=== PATIENT | male | born 1965 | race Caucasian/White ===

== ENCOUNTER 2020-07-24 18:23 | Observation (INO) | payer MEDICAID ==
[2020-07-24] MEDS: Lactated Ringers 1,000 ML IV SCH (18:36)
[2020-07-24] MEDS ORDERED: Ondansetron 4 MG/2 ML SDV IVPUSH PRN (19:14)
[2020-07-24] MEDS: Ketorolac 15 MG/ML SDV IVPUSH PRN (22:09)
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
[2020-07-25] MEDS: Lactated Ringers 1,000 ML IV SCH ×2 (02:46→15:57)
[2020-07-25] MEDS: Acetaminophen/HYDROcodone 325-5 MG Tab PO PRN ×2 (03:38→22:25)
[2020-07-25 05:58] LABS: BLOOD UREA NITROGEN,BUN 16 mg/dL (7.0-18.0); CARBON DIOXIDE,CO2 26.5 mmol/L (21.0-32.0); CHLORIDE,CL 107 mmol/L (98-107); GLUCOSE RANDOM 128 mg/dL (74-106); POTASSIUM,K 3.4 mmol/L (3.5-5.1); SODIUM,NA 141 mmol/L (136-148)
[2020-07-25] MEDS: Ketorolac 15 MG/ML SDV IVPUSH PRN ×2 (08:43→19:24)
--- NOTE | 2020-07-25 11:13 | CR ---
Chest: 2 views of the chest were obtained. Comparison: No previous chest x-ray. Minimal density within the left lung base either due to atelectasis or scarring. Lungs otherwise are clear. Heart size and mediastinum are normal. 2 healed right mid to lower rib fractures are seen. Impression: 1. Findings as noted above. 2. Nothing acute is appreciated. Diagnostic code #2 This report was dictated in MDT
--- NOTE | 2020-07-25 11:29 | PCM.PREANE ---
Preanesthetic Assessment - Anesthesia/Transfusion/Family Hx Anesthesia History: Prior Anesthesia Without Reaction Family History of Anesthesia Reaction: No Transfusion History: Prior Transfusion Without Reaction - Review of Systems General: No Symptoms Pulmonary: No Symptoms Cardiovascular: No Symptoms Neurological: No Symptoms Other: Reports: None - Physical Assessment NPO Status Date: 07/24/20 Vital Signs: Last Vital Signs Temp 98.4 F 07/25/20 11:13 Pulse 56 L 07/25/20 11:13 Resp 15 07/25/20 11:13 BP 116/63 07/25/20 11:13 Pulse Ox 95 07/25/20 11:13 Height: 5 ft 10.08 in Weight: 80.286 kg ASA Class: 1 Mental Status: Alert & Oriented x3 Airway Class: Mallampati = 2 Dentition: Reports: Normal Dentition ROM/Head Extension: Full Lungs: Clear to Auscultation, Normal Respiratory Effort Cardiovascular: Regular Rate, Regular Rhythm - Lab Values: Laboratory Last Values WBC 10.18 K/uL (4.0-11.0) 07/25/20 05:18 RBC 3.91 M/uL (4.50-5.90) L 07/25/20 05:18 Hgb 12.0 g/dL (13.0-17.0) L 07/25/20 05:18 Hct 34.6 % (38.0-50.0) L 07/25/20 05:18 MCV 88.5 fL (80.0-98.0) 07/25/20 05:18 MCH 30.7 pg (27.0-32.0) 07/25/20 05:18 MCHC 34.7 g/dL (31.0-37.0) 07/25/20 05:18 RDW Std Deviation 37.6 fl (28.0-62.0) 07/25/20 05:18 RDW Coeff of Emily 12 % (11.0-15.0) 07/25/20 05:18 Plt Count 215 K/uL (150-400) 07/25/20 05:18 MPV 9.60 fL (7.40-12.00) 07/25/20 05:18 Neut % (Auto) 78.0 % (48.0-80.0) 07/25/20 05:18 Lymph % (Auto) 8.3 % (16.0-40.0) L 07/25/20 05:18 Gregg % (Auto) 9.7 % (0.0-15.0) 07/25/20 05:18 Eos % (Auto) 3.7 % (0.0-7.0) 07/25/20 05:18 Baso % (Auto) 0.3 % (0.0-1.5) 07/25/20 05:18 Neut # (Auto) 7.9 K/uL (1.4-5.7) H 07/25/20 05:18 Lymph # (Auto) 0.9 K/uL (0.6-2.4) 07/25/20 05:18 Gregg # (Auto) 1.0 K/uL (0.0-0.8) H 07/25/20 05:18 Eos # (Auto) 0.4 K/uL (0.0-0.7) 07/25/20 05:18 Baso # (Auto) 0.0 K/uL (0.0-0.1) 07/25/20 05:18 Nucleated RBC % 0.0 /100WBC 07/25/20 05:18 Nucleated RBCs # 0 K/uL 07/25/20 05:18 Sodium 141 mmol/L (136-148) 07/25/20 05:18 Potassium 3.4 mmol/L (3.5-5.1) L 07/25/20 05:18 Chloride 107 mmol/L (98-107) 07/25/20 05:18 Carbon Dioxide 26.5 mmol/L (21.0-32.0) 07/25/20 05:18 BUN 16 mg/dL (7.0-18.0) 07/25/20 05:18 Creatinine 1.0 mg/dL (0.8-1.3) 07/25/20 05:18 Est Cr Clr Drug Dosing 87.19 mL/min 07/25/20 05:18 Estimated GFR (MDRD) > 60.0 ml/min 07/25/20 05:18 Glucose 128 mg/dL (74-106) H 07/25/20 05:18 POC Glucose 107 mg/dL (60-110) 07/25/20 07:50 Calcium 8.1 mg/dL (8.5-10.1) L 07/25/20 05:18 Total Bilirubin 0.6 mg/dL (0.2-1.0) 07/25/20 05:18 AST 11 IU/L (15-37) L 07/25/20 05:18 ALT 16 IU/L (14-63) 07/25/20 05:18 Alkaline Phosphatase 52 U/L (46-116) 07/25/20 05:18 Total Protein 5.7 g/dL (6.4-8.2) L 07/25/20 05:18 Albumin 2.8 g/dL (3.4-5.0) L 07/25/20 05:18 Globulin 2.9 g/dL (2.6-4.0) 07/25/20 05:18 Albumin/Globulin Ratio 1.0 (0.9-1.6) 07/25/20 05:18 SARS Virus RNA (PCR) NEGATIVE (NEGATIVE) 07/24/20 18:45 - Allergies Allergies/Adverse Reactions: Allergies Allergy/AdvReac Type Severity Reaction Status Date / Time No Known Allergies Allergy Verified 07/24/20 18:30 - Blood Blood Available: No - Anesthesia Plan Pre-Op Medication Ordered: None - Acknowledgements Anesthesia Type Planned: General Anesthesia Pt an Appropriate Candidate for the Planned Anesthesia: Yes Alternatives and Risks of Anesthesia Discussed w Pt/Guardian: Yes Pt/Guardian Understands and Agrees with Anesthesia Plan: Yes PreAnesthesia Questionnaire Endocrine/Metabolic History: Reports: Diabetes, Type II, Other (See Below) Other Endocrine/Metabolic History: "controlled with diet" - SUBSTANCE USE Smoking Status *Q: Former Smoker Recreational Drug Use History: No - HOME MEDS Home Medications: Home Meds . [No Known Home Meds] 07/24/20 [History] - CURRENT (IN HOUSE) MEDS Current Meds: Current Medications Hydrocodone Bitart/Acetaminophen ([place] 325-5 Mg) 1 tab PO Q4H PRN PRN Reason: Pain (moderate 4-6) Last Admin: 07/25/20 03:38 Dose: 1 tab Documented by: Lactated Ringer's (Ringers, Lactated) 1,000 mls @ 125 mls/hr IV ASDIRECTED JANAK Last Admin: 07/25/20 02:46 Dose: 125 mls/hr Documented by: Ketorolac Tromethamine (Toradol) 15 mg IVPUSH Q8H PRN PRN Reason: Pain Stop: 07/29/20 19:21 Last Admin: 07/25/20 08:43 Dose: 15 mg Documented by: Ondansetron HCl (Zofran) 4 mg IVPUSH Q4H PRN PRN Reason: Nausea
[2020-07-25] MEDS ORDERED: Rocuronium Bromide 50 MG/5 ML Syringe ONE (11:55)
[2020-07-25] MEDS ORDERED: Midazolam 1 MG/ML 2 ML SDV ONE (11:55)
[2020-07-25] MEDS ORDERED: Ketorolac 30 MG/ML SDV ONE ×2 (11:55→15:14)
[2020-07-25] MEDS ORDERED: Lidocaine 2% 100 MG/5 ML Syringe ONE (11:55)
[2020-07-25] MEDS ORDERED: Dexamethasone 4 MG/ML 5 ML MDV ONE (11:55)
[2020-07-25] MEDS ORDERED: fentaNYL 250 MCG/5 ML SDV ONE ×2 (11:55→13:21)
[2020-07-25] MEDS ORDERED: Propofol 200 MG/20 ML SDV ONE (11:55)
[2020-07-25] MEDS ORDERED: Ondansetron 4 MG/2 ML SDV ONE ×2 (11:55→14:14)
[2020-07-25] MEDS ORDERED: Bupivacaine 0.25% 10 ML SDV ONE (11:58)
[2020-07-25] MEDS ORDERED: Octyl 2-Cyanoacrylate 1 Tube ONE (11:59)
[2020-07-25] MEDS ORDERED: Bupivacaine 25%/EPINEPHrine/PF 30 ML ONE (12:05)
[2020-07-25] MEDS ORDERED: cefOXitin 1 GM Vial ONE (12:27)
[2020-07-25] MEDS ORDERED: Sodium Chloride 0.9% 20 ML ONE (12:27)
[2020-07-25] MEDS ORDERED: ePHEDrine 50 MG/ML SDV ONE (14:05)
--- NOTE | 2020-07-25 14:27 | PN ---
SUBJECTIVE: The patient was seen this morning. The patient says he is feeling much better, with less abdominal pain, though he still has some in mid epigastric and right upper quadrant. The patient says he is passing some gas and his urination has returned to normal. The patient says he still occasionally gets a little chest pain which he describes as a zing of pain that kind of goes up his chest wall. He says this does not happen very often, just kind of radiates up and then goes right away. OBJECTIVE: GENERAL: The patient is lying comfortably in his hospital bed. He is alert and oriented in no acute distress. VITAL SIGNS: Temperature is 98.0, heart rate is 62, blood pressure is 104/60. LABORATORY DATA: His white cell count has normalized at 10.1, hemoglobin is 12, platelet count is 215. Total bilirubin is 0.6, AST 11, ALT 16, alkaline phosphatase is 52. ASSESSMENT AND PLAN: The patient is a 55-year-old gentleman who was transferred yesterday for acute cholecystitis. CT scan shows thickened gall bladder wall, gall stones, and pericholecystic fluid. He does have an upper quadrant pain and discomfort. The patient said he had no questions about the surgery today. I did go the risks, goals, and alternatives. The risks include bleeding, bile leak, injury to near by structures, hernia formation, need to convert to open, retained gallstones, and that this could be something other than his gallbladder. Plan is to take the patient back when OR is open later this afternoon. All of the patient's questions were answered. I went over that I am unsure of what the quick left chest that radiates of his chest wall. I will get a pre-operative chest x-ray. JAVIER DUMONT /[id number] DIANE
[2020-07-25] MEDS ORDERED: Ketorolac 15 MG/ML SDV IVPUSH ONE (15:12)
--- NOTE | 2020-07-25 15:22 | PCM.OPNOTE ---
- General Post-Op/Procedure Note Date of Surgery/Procedure: 07/25/20 Operative Procedure(s): Laparoscopic cholecystectomy Findings: Distended, edematous gallbladder. Diction #[id number] Pre Op Diagnosis: acute cholecystitis Post-Op Diagnosis: Acute cholecystitis Anesthesia Technique: General ET Tube Primary Surgeon: Blaine Strickland Pathology: gallbladder EBL in mLs: 15 Complications: None Condition: Good Free Text/Narrative:: Intake & Output 07/25/20 07/25/20 07/25/20 06:59 14:59 22:59 Intake Total 1366 Output Total 650 Balance 716
--- NOTE | 2020-07-25 15:42 | PCM.POSTAN ---
POST ANESTHESIA ASSESSMENT - MENTAL STATUS Mental Status: Alert, Oriented - VITAL SIGNS Vital Signs: Last Vital Signs Temp 37.2 C 07/25/20 14:47 Pulse 76 07/25/20 15:28 Resp 17 07/25/20 15:28 BP 134/83 07/25/20 15:28 Pulse Ox 95 07/25/20 15:28 - RESPIRATORY Respiratory Status: Respiratory Rate WNL, Airway Patent, O2 Saturation Stable - CARDIOVASCULAR CV Status: Pulse Rate WNL, Blood Pressure Stable - GASTROINTESTINAL GI Status: No Symptoms - PAIN Pain Score: 5 (States he is comfortable. ) - POST OP HYDRATION Hydration Status: Adequate & Stable
--- NOTE | 2020-07-25 15:43 | PCM48HPAN ---
Post Anesthesia Note - EVALUATION WITHIN 48HRS OF ANESTHETIC Vital Signs in Normal Range: Yes Patient Participated in Evaluation: Yes Respiratory Function Stable: Yes Airway Patent: Yes Cardiovascular Function Stable: Yes Hydration Status Stable: Yes Pain Control Satisfactory: Yes Nausea and Vomiting Control Satisfactory: Yes Mental Status Recovered: Yes Vital Signs: Last Vital Signs Temp 37.2 C 07/25/20 14:47 Pulse 76 07/25/20 15:28 Resp 17 07/25/20 15:28 BP 134/83 07/25/20 15:28 Pulse Ox 95 07/25/20 15:28
--- NOTE | 2020-07-25 18:49 | OR ---
SURGEON: HOMERO HER MD DATE OF PROCEDURE: 07/25/2020 PREOPERATIVE DIAGNOSIS: Acute cholecystitis. POSTOPERATIVE DIAGNOSIS: Acute cholecystitis. PROCEDURE PERFORMED: Laparoscopic cholecystectomy. FINDINGS: Distended, edematous gallbladder. ANESTHESIA: General. PRIMARY SURGEON: Homero Her MD BLOOD LOSS: 15 mL. PATHOLOGY: Gallbladder. COMPLICATIONS: None. REASON FOR PROCEDURE: The patient is a pleasant 55-year-old gentleman who last Ag started having some epigastric and right upper quadrant pain. This became more diffuse and worsened throughout the week. He went to [place] where he was admitted to the hospital and started on antibiotics. A CT scan did show a gallbladder with thickened gallbladder wall and pericholecystic fluid, and he was transferred to [place] for cholecystectomy. I did go over with the patient the risks, goals, and alternatives to laparoscopic cholecystectomy. Risks include, but are not limited to, bleeding, hernia formation, injury to nearby structures such as common bile duct or duodenum, retained stones, needing to convert to open, bile leak, and this may something other than acute cholecystitis. The patient understands, and he wishes to proceed. OPERATION NARRATIVE: The patient was brought back to the OR and prepped and draped in usual sterile fashion. SCDs were placed. Preoperative antibiotics were given. Anesthesia was provided by the Anesthesia team. After time-out was performed, an infraumbilical incision was made down to his fascia. Two stay sutures were placed with 0 Vicryl sutures and the abdomen was opened in an open technique using David trocar. Now, a David trocar was placed, insufflation was began, and the abdomen was inspected. There did not appear to be any entry injury. The omentum was up and wrapped around the gallbladder. Now, three more 5 mm trocars were placed under direct visualization; one in the midepigastric, one in the right upper quadrant, and one in the lower right quadrant. Now, the omentum was carefully peeled off the inflamed and edematous gallbladder. The gallbladder was very distended and unable to grasp. Because of this, it was drained with a needle, thick green bile came out. Now, the fundus of the gallbladder was grasped and elevated. The rest of the omentum was carefully peeled off the gallbladder. Now, the infundibulum of the gallbladder was grasped and the critical view was carefully dissected out. There was some fat in this area that was very edematous, but with careful dissection. I did get a great critical view with the cystic duct, cystic artery, and liver. After this occurred, the cystic duct and cystic artery were clipped and transected. The gallbladder was then slowly lifted off the fossa with a Harmonic scalpel. The gallbladder was very edematous and kind of just peeled off the fossa. The gallbladder was then placed in the Endo Catch bag and removed through the umbilical incision. Because the gallbladder was so edematous, I had to expand both my skin and fascial incision to get the gallbladder out, quite a bit. Once the gallbladder was removed, the David trocar was replaced. Now, the fossa bed was inspected. It was suctioned and irrigated out. There was fairly good hemostasis, just some very minimal oozing, this was controlled with electrocautery. Again inspected, there was good hemostasis and clips appeared to be still in a good position. Now, the area was suctioned and irrigated out. Also looked down in the pelvis and got a little bit of fluid down there. Rest of the abdomen was inspected, did not see any other abnormalities. Now, the 5 mm trocars were removed under direct visualization and the pneumoperitoneum was released. David trocar was removed. Now, the fascia was closed with two [id number] 0 Vicryls. Two stay sutures were also used to close the fascia. All the trocar sites were again injected with local and closed with 4-0 Monocryl and Dermabond. At the end of the case, the patient was transferred to the recovery room and sponge and needle counts were correct. JAVIER DUMONT /[id number] DIANE
[2020-07-26] MEDS: Acetaminophen/HYDROcodone 325-5 MG Tab PO PRN (07:40)
--- NOTE | 2020-07-26 13:56 | DISCH ---
DATE OF DISCHARGE: 07/26/2020 PRIMARY CARE PHYSICIAN: None PCP PRIMARY DISCHARGE DIAGNOSIS: Acute cholecystitis. PROCEDURE PERFORMED: Laparoscopic cholecystectomy on 07/[address] Blaine Strickland. DISCHARGE MEDICATIONS: [place] 5/325 one tablet q.6 hours p.r.n. pain for acute pain after gallbladder removal. REASON FOR ADMISSION: The patient is a pleasant 55-year-old gentleman who for a week was having abdominal pain. He went into the [facility] and was admitted to their hospital. He was started on antibiotics and had CT scan that showed an inflamed gallbladder. He was then transferred to our facility on 07/24/2020 for a cholecystectomy. HOSPITAL COURSE: The patient was admitted on 07/24/2020. The procedure was discussed; risks, goals, and alternatives to surgery. The patient underwent a laparoscopic cholecystectomy on 07/25/2020. He did well with the surgery and was brought back to floor for recovery. The patient did spend the evening, and was released the next day, on 07/26/2020. At the time of discharge, the patient was feeling good. He was tolerating a diet. He was passing gas. He said he was feeling much better. He felt ready to go home. DISCHARGE EXAMINATION: GENERAL: The patient is sitting comfortably in the hospital bed. He is alert and oriented, in no acute distress. VITAL SIGNS: Temperature is 98.6, pulse is 64, blood pressure 126/74, saturating 96% on room air. ABDOMEN: Soft and nondistended. Incisions are all dressed with Dermabond. No signs of infection. He has some appropriate abdominal tenderness. Right-sided abdominal pain is almost gone as compared to yesterday. DISCHARGE INSTRUCTIONS: I did go over with the patient that he should stay on a low-fat, nongreasy diet for the next 3 weeks. He should avoid any heavy lifting or strenuous activities for next 2 weeks. The patient should follow up with me in 2 weeks. I went over with the patient he may shower today. He should avoid any driving for the next couple of days. I went over that if he has any nausea or vomiting, fevers or chills, he notices any redness or erythema around his incision or drainage, or has any questions whatsoever, he should call my office. All the patient's questions were answered. I did go over that the Dermabond will peel off on its own. All his questions were answered, and he feels ready for discharge. JAVIER DUMONT /[id number] MTDCharles
== END 2020-07-26 09:20 | disposition home or self-care (01) ==
LOC: MW.MS 18:23
PROVIDERS: ADMIT Internal Medicine; ATTEND Surgery
DX: K80.12 Calculus of gallbladder with acute and chronic cholecystitis without obstruction (principal); E11.9 Type 2 diabetes mellitus without complications; Z87.891 Personal history of nicotine dependence; Z01.812 Encounter for preprocedural laboratory examination; Z20.828 Contact with and (suspected) exposure to other viral communicable diseases
CPT/HCPCS: 36415; 47562; 71046; 80053; 82962; 85025; 87635; 96361; 96374; 96376; A9270; G0378; G0379; J0694; J1100; J1885; J2001; J2250; J2405; J2704; J3010; J3490; J7120; 00790; 88304; U0002